=== PATIENT | male | born 1990 | race Caucasian/White ===

== ENCOUNTER 2022-10-01 20:23 | Emergency (ER) | payer BC ==
[~2022-10-01] VITALS: Ht 180.3 cm; Wt 101.2 kg
[2022-10-01 20:28] VITALS: BP 117/72
--- NOTE | 2022-10-01 20:45 | NUR ---
Patient returned back from X-ray.
--- NOTE | 2022-10-01 22:17 | NUR ---
PT TAKEN TO BED 8
--- NOTE | 2022-10-01 22:20 | NUR ---
C/O left ankle pain x today. Patient reported, had left ankle pain while played basketball, twisted his ankle. PMHx: DENIES
--- NOTE | 2022-10-01 22:34 | NUR ---
Dr. Pereira examining patient.
[2022-10-01] MEDS ORDERED: IBUP-2213 PO (23:25)
[2022-10-01 23:35] VITALS: BP 117/72
== END 2022-10-01 23:35 | disposition home or self-care (01) ==
LOC: MED 20:23
DX: S93.402A Sprain of unspecified ligament of left ankle, initial encounter (principal); X58.XXXA Exposure to other specified factors, initial encounter; Y93.67 Activity, basketball; Y92.310 Basketball court as the place of occurrence of the external cause; Y99.8 Other external cause status
CPT/HCPCS: 73610; 99283